=== PATIENT | female | born 1985 | race Two or more races ===

== ENCOUNTER 2022-05-09 09:06 | Emergency (ER) | payer OTHER ==
[2022-05-09 09:35] VITALS: BMI 24.0
[2022-05-09] MEDS ORDERED: ACETAMINOPHEN 325 MG TABLET (FP) PO ONE (11:34)
[2022-05-09] MEDS ORDERED: ACETAMINOPHEN 325 MG TABLET (FP) ONE (11:40)
[2022-05-09] MEDS ORDERED: KETOROLAC TROMETHAMINE 15 MG/ML VIAL IM ONE (13:06)
[2022-05-09] MEDS ORDERED: KETOROLAC TROMETHAMINE 15 MG/ML VIAL ONE (13:28)
[2022-05-09 15:44] VITALS: BP 119/74; PULSE 85; RESP 18; TEMP 98.8
== END 2022-05-09 16:08 | disposition home or self-care (01) ==
LOC: JER 09:06
PROC: 3E023GC Introduction of Other Therapeutic Substance into Muscle, Percutaneous Approach (ICD-10-PCS; principal; 2022-05-09)
DX: M79.605 Pain in left leg (principal); V09.9XXA Pedestrian injured in unspecified transport accident, initial encounter
CPT/HCPCS: 72170-TC-FY; 73502-TC-LT-FY; 73552-TC-LT-FY; 73562-TC-LT-FY; 73590-TC-LT-FY; 73610-TC-LT-FY; 73630-TC-LT; 99284-25